=== PATIENT | female | born 1985 | race Hispanic/Latino ===

== ENCOUNTER 2017-03-30 20:33 | Emergency (ER) | payer SELFPAY ==
[~2017-03-30] VITALS: Ht 157.5 cm; Wt 70.2 kg
[~2017-03-30 20:33] MED LIST: PEPCID20 MG PO; PNV PO
[2017-03-30 22:00] VITALS: BP 107/79
== END 2017-03-30 22:00 | disposition home or self-care (01) | DRG 601 ==
LOC: ED 20:33
DX: N64.4 Mastodynia (principal)

== ENCOUNTER 2017-05-22 12:25 | Observation (INO) | payer SELFPAY ==
--- NOTE | 2017-05-21 23:50 | NUR ---
RESTING WITH EYES CLOSED, RESPONDS EASILY TO VERBAL COMMAND, DENIES PAIN. LR INFUSING TO LAC AT 125CC/HR, RESPIRATIONS EVEN AND UNLABORED.
[2017-05-22] VITALS (9 sets, daily range): BP systolic 87–101; BP diastolic 51–74
[~2017-05-22] VITALS: Ht 157.5 cm; Wt 67.4 kg
--- NOTE | 2017-05-22 12:41 | NUR ---
PT AMBULATED TO ER ROOM 5. ASKED FOR A UA SAMPLE
--- NOTE | 2017-05-22 13:10 | NUR ---
PATIENT RESTING ON STERTCHER, RESPS EVEN AND UNLABORED. CHANGED INTO GOWN. IV SITE STARTED, PATIENT TOLERATED WELL. LABS COLLECTED. CALL LIGHT WITHIN REACH, WILL CONTINUE TO MONITOR.
[2017-05-22 13:35] LABS: HEMATOCRIT 39.2 % (37.0-47.0); HEMOGLOBIN 13.2 g/dl (12.0-16.0); IMMATURE GRANULOCYTES 0.2 % (0.0-1.0); MEAN CELL VOLUME 91.4 fL CALC (80.0-100.0); MEAN CORPUSCULAR HGB 30.8 pG CALC (26.0-32.0); MEAN CORPUSCULAR HGB CONC 33.7 g/L CALC (32.0-36.0); NEUT# 6.48 thou/uL (2.00-7.15); RED BLOOD COUNT 4.29 mill/uL (4.20-5.60); RED CELL DISTRI WIDTH 13.3 % (11.5-15.5)
[2017-05-22 13:36] LABS: URINE BILIRUBIN - DIPSTICK NEGATIVE (NEGATIVE); URINE BLOOD DIPSTICK LARGE (NEGATIVE); URINE COLOR YELLOW; URINE GLUCOSE - DIPSTICK NEGATIVE (NEGATIVE); URINE KETONE NEGATIVE (NEGATIVE); URINE NITRITE - DIPSTICK NEGATIVE (Negative); URINE PROTEIN - DIPSTICK 100 mg/dL (NEG-TRACE); URINE SPECIFIC GRAVITY 1.025
[2017-05-22 13:40] LABS: URINE LEUK ESTERASE SMALL (NEGATIVE)
[2017-05-22 13:41] LABS: URINE BACTERIA MODERATE hpf; URINE CLARITY CLOUDY; URINE EPITHELIAL CELLS MANY EPI/hpf (0-FEW); URINE RBC 25-50 RBC/hpf (0-5); URINE WBC 20-50 WBC/hpf (0-5)
[2017-05-22 13:46] LABS: ALBUMIN 4.8 g/dL (3.2-5.0); ALKALINE PHOSPHATASE 56 u/l (38-126); ANION GAP 14 (6-22 (CALC)); BILIRUBIN, TOTAL 0.6 mg/dL (0.0-1.4); BUN 21 mg/dL (7-17); BUN/CREATININE RATIO 30 (12-20 (CALC)); CALCIUM 9.3 mg/dL (8.4-10.2); CARBON DIOXIDE 26 mmol/l (22-30); CHLORIDE 106 mmol/l (95-108); CREATININE 0.7 mg/dL (0.5-1.0); GFR > 60 ML/MIN (>=60 (CALC)); GFR FOR AFR.AMER. > 60 ML/MIN (>=60 (CALC)); GLUCOSE 99 mg/dL (65-105); LIPASE 169 u/l (23-300); POTASSIUM 3.6 mmol/l (3.5-5.1); SGOT/AST 25 u/l (14-36); SGPT/ALT 23 u/l (9-52); SODIUM 143 mmol/l (137-146); TOTAL PROTEIN 7.8 g/dL (6.3-8.2)
--- NOTE | 2017-05-22 15:10 | NUR ---
PATIENT REPORTS PAIN TO LOWER ABD, RATES 7/10. MD AWARE, AWAITING NEW ORDERS.
--- NOTE | 2017-05-22 15:29 | NUR ---
PATIENT RESTING ON STRETCHER NO SIGNS OF DISTRESS NOTED. RESPS EVEN AND UNLABORED. VISITOR AT BEDSIDE. WILL CONTINUE TO MONITOR.
--- NOTE | 2017-05-22 16:10 | NUR ---
REPORT GIVEN TO COY LORENZO. PATIENT AMBUALTES TO ROOM 8 WITH STEADY GAIT, ACCOMPANIED BY SO.
--- NOTE | 2017-05-22 16:15 | NUR ---
INTRODUCED SELF TO PT AND . PT REPORTS 7/10 LOW ABD PAIN. PATIENT TENDER UPON PALPATION TO LLQ AND RLQ. MD NOTIFED, AWAITING ORDERS.
--- NOTE | 2017-05-22 16:36 | NUR ---
DR ALARCON AT BEDSIDE FOR EXAM.
--- NOTE | 2017-05-22 16:45 | NUR ---
DR ALARCON IN ROOM WITH PATIENT TO DISCUSS PLAN OF CARE AND SURGERY. CONSENT OBTAINED.
--- NOTE | 2017-05-22 17:14 | NUR ---
SBAR PRINTED TO FLOOR
--- NOTE | 2017-05-22 17:31 | NUR ---
ANESTHESIA AT BEDSIDE.
--- NOTE | 2017-05-22 17:47 | NUR ---
ADAN RN AT BEDSIDE. REPORT GIVEN.
--- NOTE | 2017-05-22 17:49 | NUR ---
UPDATED SBAR SENT TO [id number] D/T ROOM CHANGE PER CONTRACTOR BROOMCORN THRESHING
--- NOTE | 2017-05-22 18:00 | NUR ---
Admission Note Report Given to: COY ARELLANO Transported by: Wheelchair X Stretcher Transported with: X Nurse Transporter X Patent IV O2 Machine Finisher PATIENT TRANSPORTED TO OR VIA STRECHER, FAMILY TAKEN TO SURGERY WAITING ROOM.
--- NOTE | 2017-05-22 20:05 | NUR ---
RECEIVED PT FROM OR VIA STRETCHER ACCOMPANIED BY OR NURSES, P/O HYSTEROSCOPY, HYSTOSCOPY AND REMOVAL OF IUD, PT ABLE TO TRANSFER HERSELF TO BED WITH NO ASSISTANCE. ABLE TO STATE HER NAME AND . ICE CHIP PROVIDED AND TOLERATING WELL. IV FLUIDS INFUSING TO LAC AT 125CC/HR. SCD'S TO BILAT LOWER EXTREMITIES. DENIES PAIN, AT BED SIDE. WILL CONTINUE TO MONITOR.
--- NOTE | 2017-05-22 21:28 | NUR ---
MEDICATED WITH ZOFRAN 4MG IV FOR NAUSEA AND DRYHEAVING.
--- NOTE | 2017-05-22 23:50 | NUR ---
RESTING WITH EYES CLOSED, RESPONDS EASILY TO VERBAL COMMAND, DENIES PAIN. LR INFUSING TO LAC AT 125CC/HR, RESPIRATIONS EVEN AND UNLABORED.
--- NOTE | 2017-05-23 03:36 | NUR ---
MEDICATED WITH LORTAB FOR LEFT LOWER ABDOMINAL PAIN 5/10, TOLERATING CLEAR LIQUIDS. CALL LIGHT IN REACH.
[2017-05-23 04:26] VITALS: BP 98/61
--- NOTE | 2017-05-23 04:43 | NUR ---
OOB TO BATHROOM WITH STEADY GAIT, VOIDING DARK YELLOW URINE, THEN BACK TO BED. MEDICATED WITH THE ONE TIME ORDER OF DEMEROL FOR LEFT LOWER ABDOMINAL PAIN 12/06. CALL LIGHT IN REACH, TOLERATING CLEAR LIQUIDS.
[2017-05-23 08:15] VITALS: BP 90/55
--- NOTE | 2017-05-23 08:15 | NUR ---
ASSESSMENT IS COMPLTED: FAMILY IN THE ROOM. NO DISTRESS NOTED. IV SITE IS FREE FROM REDNESS OR EDEMA. CONTINUE TO OSBERVE AND MONITOR.
[2017-05-23] MEDS ORDERED: LORTAB 5/3255 MG PO (08:55)
[2017-05-23] MEDS ORDERED: CIPRO XR1000 MG PO (08:58)
--- NOTE | 2017-05-23 10:58 | NUR ---
PT RECEIVED DISCHARGE INSTRUCTIONS RAMONDO FROM OUTPT ER REGISTRATION TO INTERPRET. IV SITE DISCONTINUED CATHETER INTACT NO REDNESS OR EDEMA. ALL PAPERS RECEIVED AND VERBALIZED UNDERSTANDING.
--- NOTE | 2017-05-23 11:00 | NUR ---
Discharge instructions given. Patient verbalizes understanding of same. Discharged in stable condition via Wheelchair to Home with family. All belongings sent with pt.
== END 2017-05-23 10:50 | disposition home or self-care (01) | DRG 690 ==
LOC: ED 12:25 → ED-I 17:07 → ED 17:19 → OB 17:20 → MS2 17:49
PROVIDERS: Family Medicine; ADMIT Obstetrics & Gynecology; ATTEND Obstetrics & Gynecology
PROC: 0TJB8ZZ Inspection of Bladder, Via Natural or Artificial Opening Endoscopic (ICD-10-PCS; principal; 2017-05-22)
PROC: 0UJD8ZZ Inspection of Uterus and Cervix, Via Natural or Artificial Opening Endoscopic (ICD-10-PCS; 2017-05-22)
PROC: 0UPD7HZ Removal of Contraceptive Device from Uterus and Cervix, Via Natural or Artificial Opening (ICD-10-PCS; 2017-05-22)
DX: N30.91 Cystitis, unspecified with hematuria (principal); B96.20 Unspecified Escherichia coli [E. coli] as the cause of diseases classified elsewhere
CPT/HCPCS: J2710; Q9967

== ENCOUNTER 2017-10-28 11:09 | Emergency (ER) | payer SELFPAY ==
[~2017-10-28] VITALS: Ht 157.5 cm; Wt 70.0 kg
[~2017-10-28 11:09] MED LIST changes: +CIPRO XR1000 MG PO; +LORTAB 5/3255 MG PO
[2017-10-28 11:48] LABS: HEMATOCRIT 41.1 % (37.0-47.0); HEMOGLOBIN 13.7 g/dl (12.0-16.0); IMMATURE GRANULOCYTES 0.3 % (0.0-1.0); MEAN CELL VOLUME 91.3 fL CALC (80.0-100.0); MEAN CORPUSCULAR HGB 30.4 pG CALC (26.0-32.0); MEAN CORPUSCULAR HGB CONC 33.3 g/L CALC (32.0-36.0); NEUT# 4.92 thou/uL (2.00-7.15); RED BLOOD COUNT 4.5 mill/uL (4.20-5.60); RED CELL DISTRI WIDTH 13.5 % (11.5-15.5)
[2017-10-28 12:08] LABS: ALBUMIN 4.4 g/dL (3.2-5.0); ALKALINE PHOSPHATASE 50 u/l (38-126); ANION GAP 18 (6-22 (CALC)); BILIRUBIN, TOTAL 0.5 mg/dL (0.0-1.4); BUN 11 mg/dL (7-17); BUN/CREATININE RATIO 23 (12-20 (CALC)); CARBON DIOXIDE 21 mmol/l (22-30); CHLORIDE 104 mmol/l (95-108); CREATININE 0.5 mg/dL (0.5-1.0); GFR > 60 ML/MIN (>=60 (CALC)); GFR FOR AFR.AMER. > 60 ML/MIN (>=60 (CALC)); POTASSIUM 3.9 mmol/l (3.5-5.1); SGOT/AST 29 u/l (14-36); SGPT/ALT 26 u/l (9-52); SODIUM 139 mmol/l (137-146); TOTAL PROTEIN 7.6 g/dL (6.3-8.2)
[2017-10-28 12:24] LABS: BETA-HCG, QUANT(RESULT NUMBER) 4494 mIU/mL
[2017-10-28 14:36] VITALS: BP 105/70
== END 2017-10-28 14:39 | disposition short-term general hospital (02) | DRG 779 ==
LOC: ED 11:09
PROVIDERS: Emergency Medicine
DX: O03.9 Complete or unspecified spontaneous abortion without complication (principal)

== ENCOUNTER 2018-09-25 12:48 | Emergency (ER) | payer MEDICAID ==
[~2018-09-25] VITALS: Ht 157.5 cm; Wt 80.0 kg
[2018-09-25 14:00] VITALS: BP 128/62
[2018-09-25] MEDS ORDERED: KEFLEX500 M1 PO (14:01)
[2018-09-25] MEDS ORDERED: ERYTHROMYCIN O3.5 GM OU (14:01)
== END 2018-09-25 14:00 | disposition home or self-care (01) ==
LOC: ED 12:48
DX: H00.013 Hordeolum externum right eye, unspecified eyelid (principal); H57.11 Ocular pain, right eye